=== PATIENT | male | born 1990 | race Caucasian/White ===

== ENCOUNTER 2018-11-27 13:07 | Emergency (ER) | payer SELFPAY ==
[~2018-11-27] VITALS: Ht 182.9 cm; Wt 95.5 kg
[~2018-11-27 13:07] MED LIST: NORCO 325 MG-51 TAB PO
[2018-11-27 15:23] LABS: BASO # 0.1 (0.0-0.2); BASO % 1.1 % (0.0-2.0); EOS # 0.5 (0.0-0.7); EOS % 6.6 % (0-4.0); GRAN % 55.8 % (42.2-75.2); HEMOGLOBIN 16.3 g/dl (13.5-18.0); LYMPH % 28.5 % (20.0-51.0); MEAN CELL VOLUME 83 fl (80.0-100.0); MEAN CORPUSCULAR HEMOGLOBIN 29 pg (27.0-31.0); MEAN CORPUSCULAR HGB CONC 35 g/dl (33.0-37.0); MONO # 0.5 (0.1-0.6); MONO % 7.6 % (1.7-9.3); PLATELET COUNT 258 K/mm3 (130-400); RED BLOOD COUNT 5.55 M/mm3 (4.20-5.60); REDCELL DISTRIBUTION WIDTH-CV 13.2 % (11.5-14.5)
[2018-11-27 15:35] LABS: ALBUMIN 4.4 gm/dL (3.5-5.0); BILIRUBIN,TOTAL 0.9 mg/dL (0.0-1.0); C-REACTIVE PROTEIN 0.7 mg/dL (0.0-0.9); CREATININE, serum 0.77 (0.66-1.25); POTASSIUM 4.4 mmol/L (3.4-5.0); TOTAL PROTEIN 7.8 gm/dL (6.4-8.2)
[2018-11-27] MEDS ORDERED: ZOFRAN ODT4 MG PO (16:22)
[2018-11-27 16:40] VITALS: BP 120/80; PULSE 75; TEMP 99.5
== END 2018-11-27 16:42 | disposition home or self-care (01) ==
LOC: COL.ER 13:07
PROVIDERS: Emergency Medicine
DX: R11.2 Nausea with vomiting, unspecified (principal); R10.84 Generalized abdominal pain; F17.210 Nicotine dependence, cigarettes, uncomplicated
CPT/HCPCS: J1885; J2405; J7030

== ENCOUNTER 2019-03-14 18:45 | Emergency (ER) | payer SELFPAY ==
[~2019-03-14] VITALS: Ht 182.9 cm; Wt 90.0 kg
[~2019-03-14 18:45] MED LIST changes: +AMOXICILLIN875 MG PO; +ZOFRAN ODT4 MG PO
[2019-03-14 18:50] VITALS: BP 128/95; PULSE 94
[2019-03-14] MEDS ORDERED: PREDNISONE10 MG PO (19:48)
[2019-03-14] MEDS ORDERED: CEPHALEXIN500 M1 PO (19:51)
[2019-03-14 19:54] VITALS: TEMP 98.4
== END 2019-03-14 20:03 | disposition home or self-care (01) ==
LOC: COL.ER 18:45
DX: L03.116 Cellulitis of left lower limb (principal); L03.115 Cellulitis of right lower limb; L23.7 Allergic contact dermatitis due to plants, except food
CPT/HCPCS: J7512

== ENCOUNTER 2022-02-27 21:21 | Emergency (ER) | payer SELFPAY ==
[~2022-02-27] VITALS: Ht 182.9 cm; Wt 95.5 kg
[~2022-02-27 21:21] MED LIST changes: +CEPHALEXIN500 M1 PO; +PREDNISONE10 MG PO
[2022-02-27 21:24] VITALS: BP 106/81; TEMP 98.1
[2022-02-27 22:55] VITALS: PULSE 92
== END 2022-02-27 22:55 | disposition home or self-care (01) ==
LOC: COL.ER 21:21
DX: S01.01XA Laceration without foreign body of scalp, initial encounter (principal); F10.129 Alcohol abuse with intoxication, unspecified; Z23 Encounter for immunization; Z28.310 Unvaccinated for COVID-19; Y04.8XXA Assault by other bodily force, initial encounter

== ENCOUNTER 2022-10-01 16:18 | Emergency (ER) | payer SELFPAY ==
[~2022-10-01] VITALS: Ht 182.9 cm; Wt 96.9 kg
[2022-10-01] MEDS ORDERED: FLEXERIL 1010 MG/TAB PO (18:03)
[2022-10-01 18:08] VITALS: BP 133/86; PULSE 78; TEMP 97
== END 2022-10-01 18:11 | disposition home or self-care (01) ==
LOC: COL.ER 16:18
DX: G43.909 Migraine, unspecified, not intractable, without status migrainosus (principal); F17.200 Nicotine dependence, unspecified, uncomplicated; Z20.822 Contact with and (suspected) exposure to COVID-19; Z28.310 Unvaccinated for COVID-19
CPT/HCPCS: J1885; J8540